=== PATIENT | male | born 2000 | race Caucasian/White ===

== ENCOUNTER 2018-10-13 13:25 | Emergency (ER) | payer SELFPAY ==
[2018-10-13] MEDS: IBUPROFEN 200 MG TAB PO (14:21)
[2018-10-13] MEDS: ACETAMINOPHEN 325 MG TAB PO (14:21)
== END 2018-10-13 15:43 | disposition home or self-care (01) ==
LOC: FTE 13:25
DX: M54.2 Cervicalgia (principal)
CPT/HCPCS: 72040; 99283-25